=== PATIENT | female | born 1955 | race African-American/Black ===

== ENCOUNTER → 2024-09-23 | Outpatient (CLI) | payer MEDICARE, MEDICAID | END | disposition home or self-care (01) | LOC: RAD 14:11 | PROVIDERS: ATTEND Nurse Practitioner Family | DX: M17.11 Unilateral primary osteoarthritis, right knee (principal); M25.761 Osteophyte, right knee; M11.261 Other chondrocalcinosis, right knee | CPT/HCPCS: 73560 ==